=== PATIENT | male | born 1985 | race African-American/Black ===

== ENCOUNTER 2018-07-07 19:48 | Emergency (ER) | payer OTHER | END 2018-07-07 21:38 | disposition home or self-care (01) | LOC: M ED 19:48 | DX: S76.111A Strain of right quadriceps muscle, fascia and tendon, initial encounter (principal); Y93.02 Activity, running; Y92.89 Other specified places as the place of occurrence of the external cause | CPT/HCPCS: 99283 ==

== ENCOUNTER → 2019-05-19 | Outpatient (CLI) | payer OTHER ==
--- NOTE | 2019-05-19 14:54 | REP ---
REASON FOR EXAM: Cough. FINDINGS: The superior mediastinal structures are midline. The cardiac silhouette is unremarkable in size, shape, and position. The diaphragmatic surfaces of the lungs are regular, and the costophrenic angles are clear. The pulmonary porter are clear. The imaged osseous structures are intact. IMPRESSION: There is no acute cardiopulmonary disease. Electronically Signed by Dar Jeronimo DO 05/19/2019 03:15 P
== END ==
LOC: M LRY 12:15
PROVIDERS: ATTEND Physician Assistant
DX: R05 Cough (principal)
CPT/HCPCS: 71046; G0463